=== PATIENT | male | born 1980 | race Caucasian/White ===

== ENCOUNTER 2019-03-30 23:57 | Inpatient (IN) | payer BC, OTHER ==
[2019-03-31] MEDS ORDERED: ACETAMINOPHEN 325 MG TAB PO (02:30)
[2019-03-31] MEDS ORDERED: ONDANSETRON 4 MG INJ IV (02:30)
[2019-03-31] MEDS: HYDROmorphONE 1 MG/ML SYG IV ×2 (03:35→08:56)
[2019-03-31] MEDS: INSULIN ASPART [NOVOLOG] 3 ML PEN SC ×3 (05:00→12:22)
[2019-03-31] MEDS: PANTOPRAZOLE 40 MG INJ IV (05:50)
[2019-03-31 06:05] LABS: ADD MAN DIFF? NO
[2019-03-31 06:12] LABS: WHITE BLOOD COUNT 9.9 10^3/ul (4.8-10.8)
[2019-03-31 06:12] LABS: ABNORMAL IP MESSAGE 1; BASOPHILS % 0.1 % (0.0-2.0); EOSINOPHILS % 0.1 % (0.0-7.0); HEMATOCRIT 33.7 % (42.0-52.0); HEMOGLOBIN 11.2 g/dl (14.0-18.0); LYMPHOCYTES # 0.5 10^3/ul (0.8-2.9); LYMPHOCYTES % 5.4 % (15.0-51.0); MEAN CORPUSCULAR HGB CONC 33.2 g/dl (32.0-37.0); MEAN CORPUSCULAR VOLUME 102.4 fl (82.0-101.0); MEAN PLATELET VOLUME 10.5 fl (7.4-10.4); MONOCYTE # 0.4 10^3/ul (0.3-0.9); MONOCYTES % 3.8 % (0.0-11.0); NEUTROPHIL # 8.9 10^3/ul (1.6-7.5); NEUTROPHILS % 90.3 % (39.0-77.0); PLATELET COUNT 187 10^3/UL (140-415); POSITIVE DIFF @See below; RED BLOOD COUNT 3.29 10^6/ul (4.70-6.10); RED CELL DISTRIBUTION WIDTH 13.8 % (11.5-14.5)
[2019-03-31 06:44] LABS: ANION GAP 24 (5-13); BLOOD UREA NITROGEN 84 mg/dl (7-20); CALCIUM 8.1 mg/dl (8.4-10.2); CARBON DIOXIDE 20 mmol/L (21-31); CHLORIDE 93 mmol/L (97-110); GLUCOSE 110 mg/dl (70-220); SODIUM 137 mmol/L (135-144)
[2019-03-31 06:48] LABS: POTASSIUM 6.4 mmol/L (3.5-5.1)
[2019-03-31 06:50] LABS: Estimated GFR 4 mL/min (>60)
[2019-03-31 06:55] LABS: CREATININE 13.37 mg/dl (0.61-1.24)
[2019-03-31] MEDS ORDERED: DEXTROSE 50% 50 ML SYRINGE IV ×2 (08:30)
[2019-03-31] MEDS ORDERED: GLUCOSE GEL 15 GRAM TUBE BUCCAL (08:30)
[2019-03-31] MEDS ORDERED: SODIUM CHLORIDE 0.9% 1L BAG IV (08:30)
[2019-03-31] MEDS ORDERED: GLUCAGON 1 MG INJ IM (08:30)
[2019-03-31] MEDS ORDERED: GLUCOSE GEL 15 GRAM TUBE PO ×2 (08:30)
[2019-03-31 09:01] LABS: HEPATITIS B SURFACE ANTIGEN NEGATIVE (NEGATIVE)
[2019-03-31] MEDS: AMLODIPINE 10 MG TAB PO (10:04)
[2019-03-31] MEDS: hydrALAzine 20 MG INJ IV (10:59)
[2019-03-31] MEDS: HEPARIN 1000 UNITS/ML 10 ML INJ CATHETER (13:29)
[2019-03-31] MEDS ORDERED: CEFTRIAXONE 1 GM/50 ML (PMX) 50 ML IVPB (15:30)
[2019-03-31] MEDS ORDERED: VANCOMYCIN IV PER PHARMACY XX (15:30)
== END 2019-03-31 15:30 | disposition left against medical advice (07) | DRG 864 ==
LOC: PP2 23:57
PROVIDERS: Internal Medicine
DX: R50.9 Fever, unspecified (principal); N18.6 End stage renal disease; I12.0 Hypertensive chronic kidney disease with stage 5 chronic kidney disease or end stage renal disease; E87.5 Hyperkalemia; E11.9 Type 2 diabetes mellitus without complications; R11.2 Nausea with vomiting, unspecified; R10.13 Epigastric pain
CPT/HCPCS: 80048; 82962; 85025; 87340; 90935